=== PATIENT | male | born 1960 | race Caucasian/White ===

== ENCOUNTER 2019-03-23 20:34 | Emergency (ER) | payer SELFPAY ==
[~2019-03-23] VITALS: Ht 185.4 cm; Wt 113.6 kg
[2019-03-23 20:40] VITALS: BP 148/70; TEMP 98.9
[2019-03-23 20:55] LABS: COLLECTION METHOD CLEAN CATCH
[2019-03-23 21:16] LABS: BASO % 0.4 % (0.0-2.0); GRAN # 7.6 (1.4-6.5); GRAN % 66.3 % (42.2-75.2); HEMATOCRIT 40.7 % (42.0-52.0); HEMOGLOBIN 13.5 g/dl (13.5-18.0); LYMPH # 2.5 (1.2-3.4); LYMPH % 22.3 % (20.0-51.0); MEAN CELL VOLUME 91 fl (80.0-100.0); MEAN CORPUSCULAR HEMOGLOBIN 30 pg (27.0-31.0); MEAN CORPUSCULAR HGB CONC 33 g/dl (33.0-37.0); MEAN PLATELET VOLUME 9.1 fl (7.4-10.4); MONO # 1.2 (0.1-0.6); MONO % 10.6 % (1.7-9.3); PLATELET COUNT 251 K/mm3 (130-400); RED BLOOD COUNT 4.46 M/mm3 (4.20-5.60); REDCELL DISTRIBUTION WIDTH-CV 13.4 % (11.5-14.5)
[2019-03-23 21:25] LABS: MUCOUS Present /lpf; PH 5 (5-8); SQUAMOUS EPITHELIAL None Seen /hpf; URINE APPEARANCE Clear; URINE BACTERIA None Seen /hpf; URINE BILIRUBIN Negative (NEGATIVE); URINE BLOOD 1+ (NEGATIVE); URINE COLOR Yellow; URINE GLUCOSE Negative (NEGATIVE); URINE KETONE Negative (NEGATIVE); URINE LEUKOCYTE ESTERASE Negative (NEGATIVE); URINE NITRATE Negative (NEGATIVE); URINE PROTEIN(semi-quant) Negative (NEGATIVE); URINE RBC 0-2 /hpf; URINE UROBILINOGEN Negative (NEGATIVE)
[2019-03-23 21:31] LABS: ALBUMIN 4.4 gm/dL (3.5-5.0); BILIRUBIN,TOTAL 0.3 mg/dL (0.0-1.0); C-REACTIVE PROTEIN 1.5 mg/dL (0.0-0.9); CALCIUM 8.9 mg/dL (8.4-10.2); CREATININE, serum 0.89 (0.66-1.25); POTASSIUM 3.8 mmol/L (3.4-5.0); TOTAL PROTEIN 7.3 gm/dL (6.4-8.2)
[2019-03-23] MEDS ORDERED: FLAGYL500 MG PO (22:22)
[2019-03-23] MEDS ORDERED: CIPRO 500MG TA500 MG PO (22:22)
[2019-03-23 22:37] VITALS: PULSE 88
== END 2019-03-23 22:37 | disposition home or self-care (01) ==
LOC: COL.ER 20:34
PROVIDERS: Emergency Medicine
DX: K57.92 Diverticulitis of intestine, part unspecified, without perforation or abscess without bleeding (principal); I10 Essential (primary) hypertension
CPT/HCPCS: J1885; J7030; Q9967

== ENCOUNTER → 2021-03-13 | Outpatient (CLI) | payer OTHER ==
[~2021-03-13] MED LIST: CIPRO 500MG TA500 MG PO; FLAGYL500 MG PO
== END ==
LOC: COL.RAD 09:09
DX: R07.9 Chest pain, unspecified (principal); M47.816 Spondylosis without myelopathy or radiculopathy, lumbar region